=== PATIENT | female | born 1960 | race Caucasian/White ===

== ENCOUNTER 2022-01-18 13:07 | Outpatient (CLI) | payer MEDICARE | END 2022-01-18 13:08 | disposition home or self-care (01) | LOC: CSHULT 13:07 | PROVIDERS: ATTEND Urology | DX: N31.9 Neuromuscular dysfunction of bladder, unspecified (principal); N39.41 Urge incontinence; Z87.440 Personal history of urinary (tract) infections | CPT/HCPCS: 76770 ==